=== PATIENT | male | born 1940 | race Caucasian/White ===

== ENCOUNTER 2022-08-27 19:22 | Emergency (ER) | payer OTHER ==
[~2022-08-27] VITALS: Ht 182.8 cm; Wt 83.9 kg
[~2022-08-27 19:22] MED LIST: COREG12.5 MG PO; FLOMAX0.4 MG PO; KEFLEX500 MG PO; LIPITOR20 MG PO; NEXIUM40 MG PO; PINDOLOL5 MG PO
[2022-08-27] MEDS ORDERED: ELIQUIS2.5 M1 PO (19:35)
== END 2022-08-27 20:54 | disposition home or self-care (01) ==
LOC: ED 19:22
DX: S01.01XA Laceration without foreign body of scalp, initial encounter (principal); Z79.899 Other long term (current) drug therapy; W18.39XA Other fall on same level, initial encounter; Y93.89 Activity, other specified; Y92.89 Other specified places as the place of occurrence of the external cause; Y99.8 Other external cause status